=== PATIENT | female | born 1975 | race Caucasian/White ===

== ENCOUNTER → 2018-02-08 | Outpatient (CLI) | payer OTHER ==
--- NOTE | 2018-02-08 17:16 | XR ---
EXAMINATION TYPE: XR lumbar spine 2 or 3V DATE OF EXAM: 02/08/2018 COMPARISON: NONE HISTORY: Back pain TECHNIQUE: 3 views FINDINGS: Vertebra have normal alignment. There is slight narrowing at L4-5 L5-S1 disc spaces. There is minimal spurring. Posterior elements are intact. Sacroiliac joints are intact. IMPRESSION: Minimal degenerative disc changes. No fracture.
--- NOTE | 2018-02-08 17:16 | XR ---
EXAMINATION TYPE: XR pelvis AP view DATE OF EXAM: 02/08/2018 COMPARISON: NONE HISTORY: Pain TECHNIQUE: Single view FINDINGS: Pelvic ring is intact. Proximal femurs are intact. I see no fracture. Sacroiliac joints chris ear normal. IMPRESSION: Normal pelvis
--- NOTE | 2018-02-08 17:17 | XR ---
EXAMINATION TYPE: XR foot complete RT DATE OF EXAM: 02/08/2018 COMPARISON: NONE HISTORY: Pain TECHNIQUE: 3 views FINDINGS: There is a moderate plantar calcaneal spur. Metatarsals are intact. I see no fracture nor d islocation. There are no erosions. IMPRESSION: Calcaneal spurring. No fracture seen.
== END | disposition home or self-care (01) ==
LOC: RADXRMAIN 16:36
PROVIDERS: ATTEND Emergency Medicine
DX: M47.816 Spondylosis without myelopathy or radiculopathy, lumbar region (principal); M77.31 Calcaneal spur, right foot
CPT/HCPCS: 72100; 72170